=== PATIENT | female | born 1980 | race Caucasian/White ===

== ENCOUNTER → 2021-05-15 | Outpatient (CLI) | payer OTHER ==
[~2021-05-15] MED LIST: BENZ100A PO; CODGUAEL PO; HYDR1TAB94 PO; Mucinex600 MG PO; Zofran Odt4 MG SL
== END | disposition home or self-care (01) ==
LOC: LAB SHORT 16:00
DX: D22.5 Melanocytic nevi of trunk (principal); D22.39 Melanocytic nevi of other parts of face; L81.4 Other melanin hyperpigmentation; L82.1 Other seborrheic keratosis; L85.3 Xerosis cutis; L57.8 Other skin changes due to chronic exposure to nonionizing radiation; L08.9 Local infection of the skin and subcutaneous tissue, unspecified; R21 Rash and other nonspecific skin eruption
CPT/HCPCS: 87070; 87205